=== PATIENT | female | born 1970 | race Hispanic/Latino ===

== ENCOUNTER 2024-01-05 16:35 | Emergency (ER) | payer OTHER ==
--- NOTE | 2024-01-05 18:04 | RAD REPORT ---
Procedure: Chest Single View HISTORY: Chest pain COMPARISON: 2010 FINDINGS: The lungs appear clear of acute infiltrate. No significant pleural effusion noted. The heart is normal size. IMPRESSION: No acute abnormality is displayed.
--- NOTE | 2024-01-05 18:05 | RAD REPORT ---
Exam:Shoulder Left 2+ Views HISTORY: Left shoulder pain FINDINGS: No fracture or dislocation seen
--- NOTE | 2024-01-05 18:06 | RAD REPORT ---
EXAMINATION: Thoracic Spine Ap/Lat CLINICAL INDICATION: Back pain FINDINGS: No fracture or dislocation seen Osteoporosis
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
[2024-01-05] MEDS ORDERED: HYDROCODONE/APAP 5/325 MG TAB ONE (19:09)
[2024-01-06 01:16] VITALS: TEMP 97.4
[2024-01-06 01:19] VITALS: BP 132/76; O2SAT 99
--- NOTE | 2024-01-06 12:51 | EKG ---
Test Date: 2024-01-05 Test Time: 18:36:18 Tip Banding Machine Operator: VANIA MEASUREMENT RESULTS: Intervals: Rate: 85 AK: 188 QRSD: 80 QT: 366 QTc: 435 [place]: P: 51 AK: 188 QRS: 98 T: 42 INTERPRETIVE STATEMENTS: Normal sinus rhythm Rightward axis Borderline ECG Compared to ECG 05/23/2010 10:45:50 Right-axis deviation now present Sinus bradycardia no longer present Electronically Signed On 01-06-24 12:49:01 CDT by Chaitanya Harding
== END 2024-01-05 19:18 | disposition home or self-care (01) ==
LOC: ER 16:35
DX: R07.9 Chest pain, unspecified (principal); M25.512 Pain in left shoulder; M54.6 Pain in thoracic spine; V43.53XA Car driver injured in collision with pick-up truck in traffic accident, initial encounter; I10 Essential (primary) hypertension
CPT/HCPCS: 71045; 72070; 93005; 99284